=== PATIENT | male | born 2000 | race Caucasian/White ===

== ENCOUNTER 2022-02-07 02:51 | Emergency (ER) | payer MEDICAID ==
[~2022-02-07] VITALS: Ht 182.9 cm; Wt 75.0 kg
[2022-02-07 04:59] LABS: BASOPHILS % 0.7 % (0.0-2.0); EOSINOPHILS % 1.7 % (0.0-5.0); HEMATOCRIT. 39.7 % (42.0-52.0); LYMPHOCYTES % 38.9 % (20.0-50.0); MEAN CORPUSCULAR HEMOGLOBIN 29.8 pg (28.0-32.0); MEAN CORPUSCULAR VOLUME 90.8 fL (80.0-94.0); MEAN PLATELET VOLUME 10.5 fl (7.4-10.4); MONOCYTES % 5.8 % (2.0-8.0); NEUTROPHILS % 52.9 % (40.0-76.0); PLATELET 190 x1000/uL (130-400); RED BLOOD CELL COUNT 4.37 mill/uL (4.7-6.1); RED CELL DISTRIBUTION WIDTH 15.9 % (11.6-14.6)
[2022-02-07 05:06] LABS: CHLORIDE 111 mEq/L (98-107)
[2022-02-07 05:08] LABS: *AMPHETAMINES SCREEN URINE NEGATIVE (NEGATIVE); *BARBITURATES SCREEN URINE NEGATIVE (NEGATIVE); *BENZODIAZEPINES SCREEN URINE NEGATIVE (NEGATIVE); *COCAINE SCREEN URINE NEGATIVE (NEGATIVE); CANNABINOID URINE SCREEN NEGATIVE (NEGATIVE); METHADONE URINE SCREEN NEGATIVE (NEGATIVE); OPIATES URINE SCREEN NEGATIVE (NEGATIVE); PHENCYCLIDINE URINE SCREEN NEGATIVE (NEGATIVE)
[2022-02-07 05:12] LABS: ETHANOL BLOOD < 10 mg/dL
[2022-02-07] MEDS ORDERED: FLUOXETINE HCL 10 MG CAPSULE PO SCH (09:00)
[2022-02-07] MEDS ORDERED: ARIPIPRAZOLE 5MG TABLET PO SCH (09:00)
[2022-02-07] MEDS ORDERED: ACETAMINOPHEN 325MG TABLET PO ONE (12:30)
[2022-02-07] MEDS ORDERED: LORAZEPAM 1MG TABLET PO ONE (12:30)
[2022-02-07 13:13] VITALS: BP 129/84
== END 2022-02-07 13:34 ==
LOC: ER 02:51
DX: R41.82 Altered mental status, unspecified (principal); T42.4X2A Poisoning by benzodiazepines, intentional self-harm, initial encounter; Y92.9 Unspecified place or not applicable; F19.10 Other psychoactive substance abuse, uncomplicated; F41.9 Anxiety disorder, unspecified; F32.9 Major depressive disorder, single episode, unspecified; F90.9 Attention-deficit hyperactivity disorder, unspecified type; Z20.822 Contact with and (suspected) exposure to COVID-19
CPT/HCPCS: 36415; 70450; 80053; 80305; 80307; 80320; 80329; 85025; 99285; C9803; U0003; U0005; G0480